=== PATIENT | male | born 1985 | race Hispanic/Latino ===

== ENCOUNTER → 2018-08-22 | Outpatient (CLI) | payer MEDICAID | END | disposition home or self-care (01) | LOC: OIH 16:25 | PROVIDERS: ATTEND Family Medicine | DX: R05 Cough (principal); M41.84 Other forms of scoliosis, thoracic region | CPT/HCPCS: 71045 ==

== ENCOUNTER → 2018-11-14 | Outpatient (CLI) | payer MEDICAID ==
--- NOTE | 2018-11-14 09:30 | NUR ---
MBSS COMPLETED. +S/S OF ASPIRATION WITH HONEY-THICK LIQUIDS. RECOMMEND PEG TUBE FOR NUTRITION/HYDRATION; PILLS WITH PUDDING ONLY. PATIENT INFORMATION: Pt IS A 33 YEAR OLD MALE WHO WAS REFERRED FOR AN MBSS TO DETERMINE APPROPRIATENESS OF P.O. FOR PILLS ONLY. Pt WAS ACCOMPANIED BY MOTHER WHO SERVED PRIMARY INFORMANT FOR MEDICAL AND SOCIAL HISTORY. MOTHER STATES Pt CURRENTLY HAS A PEG TUBE WHERE HE RECEIVES ALL OF HIS HYDRATION AND NUTRITION. Pt RECEIVES MEDICATION VIA P.O. SECONDARY TO MEDICATION PLUGGING PEG. Pt IS CONTRACTED AND REQUIRES TOTAL CARE. Pt WITH RECENT HISTORY OF PNEUMONIAS AND ASPIRATION. Pt HAS A PAST MEDICAL HISTORY SIGNIFICANT FOR DANDY-WALKER SYNDROME/MALFORMATION. 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 TRIALS: 1. TSP PUREED: RESIDUE IN POSTERIOR WALL AND VALLECULAE 2. TSP PUDDING: GOOD (NO RESIDUE OR RISK WITH AIRWAY) 3. TSP HONEY-THICK LIQUIDS: SILENT ASPIRATION RECOMMENDATIONS: 1. PEG TUBE FEEDINGS FOR ALL NUTRITION/HYDRATION. 2. PILLS WITH PUDDING ONLY 3. COMPENSATORY STRATEGIES: *SEATED AT 90 *CUE Pt BY TAPPING ON CHIN TO LOOK DOWN AND CLOSE AIRWAY. MOTHER WAS PROVIDED WITH RESULTS AND RECOMMENDATIONS VIA WRITTEN MODALITY IN HER [place] LANGUAGE OF MONGOLIAN. ALL QUESTIONS ANSWERED AT THIS TIME. G-CODES SWALLOWING: [id number] Addendum: 11/14/18 at 1210 by ADONIS ZIMMER Amended: Links added.
== END | disposition home or self-care (01) ==
LOC: RAH 08:20
PROVIDERS: ATTEND Family Medicine
DX: R13.10 Dysphagia, unspecified (principal)
CPT/HCPCS: 74230; 92611

== ENCOUNTER → 2018-11-15 | Outpatient (CLI) | payer MEDICAID | END | disposition home or self-care (01) | LOC: RAH 10:03 | PROVIDERS: ATTEND Family Medicine | DX: R13.10 Dysphagia, unspecified (principal) | CPT/HCPCS: 74240 ==

== ENCOUNTER → 2020-11-30 | Outpatient (CLI) | payer MEDICAID | END | disposition home or self-care (01) | LOC: RAH 10:58 | PROVIDERS: ATTEND Internal Medicine Gastroenterology | DX: Z93.1 Gastrostomy status (principal) | CPT/HCPCS: 74018 ==